=== PATIENT | male | born 1960 | race Caucasian/White ===

== ENCOUNTER → 2017-01-07 | Day surgery (SDC) | payer MEDICAID ==
[~2017-01-07] MED LIST: ASPIRIN EC 325 MG TAB PO ONE; ATROPINE SULFATE 1 MG/10 ML SYR IVP PRN; DIAZEPAM 5 MG TAB PO ONE; FAMOTIDINE 20 MG TAB PO ONE; IOPAMIDOL (ISOVUE 370) 100 ML BTL IV ONE; LIDOCAINE 1% 30 ML SDV ONE; MIDAZOLAM 2 MG/2 ML VIAL ONE; NITROGLYCERIN 0.4 MG BTL SL PRN; NS 1,000 ML IV ONE; ONDANSETRON 4 MG/2 ML VIAL IVP PRN; diphenhydrAMINE 25 MG CAP PO ONE; fentaNYL 100 MCG/2 ML INJ ONE
--- NOTE | 2017-01-07 10:16 | CPEKG ---
Heart Rate: 61 RR Interval: 984 P-R Interval: 160 QRSD Interval: 92 QT Interval: 472 QTC Interval: 476 P [place]: 80 QRS [place]: 75 T Wave [place]: 35 EKG Severity - BORDERLINE ECG - EKG Impression: SINUS RHYTHM EKG Impression: VENTRICULAR PREMATURE COMPLEX EKG Impression: BORDERLINE PROLONGED QT INTERVAL Electronically Signed By: Tez Bullard 08-Jan-2017 08:39:25
[2017-01-07 10:35] LABS: % IMMATURE GRANULYOCYTES 0.2 % (0.0-1.1); ABSOLUTE IMMATURE GRANULOCYTES 0.01 10^3/uL (0.00-0.10); ADD DIFF? NO; ADD MORPH? NO; ADD SCAN? NO; ATYPICAL LYMPHOCYTE FLAG 20 (0-99); FRAGMENT RBC FLAG 0 (0-99); HEMATOCRIT 45.8 % (40.0-51.0); HEMOGLOBIN 16.2 g/dL (13.7-17.5); LEFT SHIFT FLG 0 (0-99); LIPEMIA HEMOLYSIS FLAG 90 (0-99); MEAN CELL HEMOGLOBIN 32.7 pg (27.9-34.1); MEAN CELL HEMOGLOBIN CONCENTR. 35.4 g/dL (32.4-36.7); MEAN CELL VOLUME 92.3 fL (81.5-99.8); MEAN PLATELET VOLUME 9.5 fL (8.7-11.7); PLATELET CLUMPS FLAG 0 (0-99); PLATELET COUNT 180 10^3/uL (150-400); RED BLOOD CELL COUNT 4.96 10^6/uL (4.40-6.38); RED CELL DISTRIBUTION WIDTH 11.8 % (11.5-15.2)
[2017-01-07 10:46] LABS: INR 1.02 (0.83-1.16); PROTIME(PATIENT) 13.3 SEC (12.0-15.0)
[2017-01-07 10:49] LABS: ANION GAP 12 mEq/L (8-16); CALCIUM 9.2 mg/dL (8.5-10.4); CARBON DIOXIDE 27 mEq/l (22-31); CHLORIDE 106 mEq/L (97-110); CHOLESTEROL 201 mg/dL (140-220); CHOLESTEROL/HDL RATIO 4.19 RATIO (1.00-4.97); CREATININE 0.8 mg/dL (0.7-1.3); GLOMERULAR FILTRATION RATE > 60; GLUCOSE 103 mg/dL (70-100); HIGH DENSITY LIPOPROTEIN 48 mg/dL (40-65); LDL/HDL RATIO 2.88 RATIO (1.00-3.64); LOW DENSITY LIPOPROTEIN 138 mg/dL (80-100); NON-HIGH DENSITY LIPOPROTEIN 153 mg/dL (90-129); SODIUM 145 mEq/L (134-144); TRIGLYCERIDE 75 mg/dL (40-150); VERY LOW DENSITY LIPOPROTEINS 15 mg/dL (8-25)
--- NOTE | 2017-01-07 23:41 | CPIP ---
[f rep st] INVASIVE CARDIAC PROCEDURE DATE OF PROCEDURE: 01/07/2017 PROCEDURE: 1. Coronary angiography. 2. Left ventriculography. INDICATION: 1. Chest pain concerning for class II to III angina. 2. Abnormal exercise tolerance test with intermediate Crowell treadmill score. ACCESS: Patient was prepped and draped in sterile fashion. 1% lidocaine was used to anesthetize th e right inguinal region. A 6-Vincentian introducer sheath was placed selectively into the right common femoral artery via modified Seldinger technique. CORONARY ANGIOGRAPHY: A 6-Vincentian JL4 was advanced to left main coronary artery and images obtained. Left main coronary artery bifurcated into an LAD and circumflex coronary arteries. The left main coronary artery is relatively short. The left main coronary artery appeared normal. The left anter ior descending coronary artery gave rise to one prominent diagonal branch. The left anterior descen ding coronary artery had a single discrete 10% stenosis in the proximal segment. The remainder of t he vessel, as well as the diagonal artery, was normal. The circumflex coronary artery is dominant. The circumflex coronary artery appeared normal. A 6-Vincentian No-torque right catheter was advanced t o the right coronary artery and images obtained. The right coronary artery is nondominant. The rig ht coronary artery appeared normal. LEFT VENTRICULOGRAPHY: A 6-Vincentian pigtail catheter was advanced in the left ventricle and images ob tained. Left ventricle is normal size and normal systolic function. Estimated ejection fraction 60 %. Left ventricular end-diastolic pressure is 11 mmHg. COMPLICATIONS: None. CONCLUSIONS: 1. Mild coronary disease without flow limitation. 2. Normal left ventricular size and systolic function, with normal left ventricular end-diastolic p ressure. PLAN: Medical management. /[id number]/MODL
== END | disposition home or self-care (01) ==
LOC: FCATH 09:49
PROVIDERS: ATTEND Internal Medicine Cardiovascular Disease
PROC: 4A023N7 Measurement of Cardiac Sampling and Pressure, Left Heart, Percutaneous Approach (ICD-10-PCS; principal; 2017-01-07)
PROC: B2151ZZ Fluoroscopy of Left Heart using Low Osmolar Contrast (ICD-10-PCS; 2017-01-07)
PROC: B2111ZZ Fluoroscopy of Multiple Coronary Arteries using Low Osmolar Contrast (ICD-10-PCS; 2017-01-07)
DX: R07.9 Chest pain, unspecified (principal); R94.39 Abnormal result of other cardiovascular function study; I25.10 Atherosclerotic heart disease of native coronary artery without angina pectoris; R06.00 Dyspnea, unspecified; R00.2 Palpitations; I34.0 Nonrheumatic mitral (valve) insufficiency
CPT/HCPCS: C1760; J1644; J2250; J3010; Q9967

== ENCOUNTER → 2018-10-26 | Outpatient (CLI) | payer MEDICAID | LOC: FIMAGING 13:45 | PROVIDERS: ATTEND Specialist | DX: R10.9 Unspecified abdominal pain (principal); I87.8 Other specified disorders of veins; M41.86 Other forms of scoliosis, lumbar region ==

== ENCOUNTER → 2018-11-03 | Outpatient (CLI) | payer MEDICAID, OTHER ==
[~2018-11-03] MED LIST changes: -ASPIRIN EC 325 MG TAB PO ONE; -ATROPINE SULFATE 1 MG/10 ML SYR IVP PRN; -DIAZEPAM 5 MG TAB PO ONE; -FAMOTIDINE 20 MG TAB PO ONE; -IOPAMIDOL (ISOVUE 370) 100 ML BTL IV ONE; +IOPAMIDOL (ISOVUE-300) 100 ML BTL ONE; -LIDOCAINE 1% 30 ML SDV ONE; -MIDAZOLAM 2 MG/2 ML VIAL ONE; -NITROGLYCERIN 0.4 MG BTL SL PRN; -NS 1,000 ML IV ONE; -ONDANSETRON 4 MG/2 ML VIAL IVP PRN; -diphenhydrAMINE 25 MG CAP PO ONE; -fentaNYL 100 MCG/2 ML INJ ONE
== END ==
LOC: CIMAGING 09:34
PROVIDERS: ATTEND Specialist
DX: N20.0 Calculus of kidney (principal)
CPT/HCPCS: 74178-PO; Q9967